=== PATIENT | male | born 1940 | race Two or more races ===

== ENCOUNTER 2018-06-24 22:36 | Inpatient (IN) | payer OTHER, MEDICARE ==
[~2018-06-24] VITALS: Ht 162.6 cm; Wt 59.3 kg
--- NOTE | 2018-06-24 23:00 | NUR ---
FIRST CONTACT WITH PT. PT STANDING STEADILY AT BEDSIDE. FAMILY PRESENT. FAMILY/PT REPORT BEING SEEN IN ED IN [place] TODAY FOR WORSENING L SIDED FACIAL SWELLING/DIFFICULTY SWALLOWING X FIVE DAYS. GIVEN UNASYN IN [place] THEN TRANSFERED BY FAMILY BY PRIVATE VEHICLE. FAMILY/PT DENIES FEVER/N/V. HX OF CA, NOT CURRENTLY UNDERGOING CHEMO. AIRWAY PATENT, SPEECH MILDLY MUFFLED. NAD NOTED. IV ESTABLISHED. LABS AND BC X1 DRAWN W/ PIV START. ERP AT BEDSIDE FOR INITIAL ASSESSMENT. POC IS ADMIT, PT/FAMILY DEMONSTRATE UNDERSTANDING.
[2018-06-24] MEDS ORDERED: MORPHINE SULFATE 4 MG/ML, 1ML IVPush PRN (23:30)
[2018-06-24] MEDS ORDERED: AMPICILLIN/SULBACTAM 3 GM in SODIUM CHLORIDE 0.9% 100 ML IV ONE (23:30)
[2018-06-24] MEDS ORDERED: MORPHINE SULFATE 4 MG/ML, 1ML ONE (23:30)
[2018-06-24] MEDS ORDERED: SODIUM CHLORIDE FLUSH 10ML SYR IVF ONE (23:30)
[2018-06-24 23:37] LABS: ALBUMIN 3.1 g/dL (3.4-5.0); ANION GAP 9 mmol/L (5-15); CALCIUM 7.8 mg/dL (8.5-10.1); CHLORIDE 108 mmol/L (98-107)
--- NOTE | 2018-06-24 23:48 | NUR ---
ABX INITIATED. PT MEDICATED PER EMAR FOR PAIN. NO BC PRIOR TO ABX ADMIN OKAY PER ERP. PT PROVIDED MOUTH SWABS AND UNDERSTANDS NOP STATUS. FAMILY AT BEDSIDE. SPO2 TO 88% ON RA. RR EVEN/UNLABORED. PLACED ON 2L BY NC FOR SUPPORT, SPO2 TO 93%. RR WNL.
[2018-06-25 00:02] LABS: MD YES; MEAN CORPUSCULAR HEMOGLOBIN 33.2 pg (27.5-34.5); MEAN CORPUSCULAR HGB CONC 33.7 g/dL (33.2-36.2); MEAN CORPUSCULAR VOLUME 98.6 fL (81-97); RED CELL DISTRIBUTION WIDTH 17.2 % (9.4-14.8)
[2018-06-25] MEDS ORDERED: NS + 20MEQ KCL 1,000 ML IV SCH (00:11)
[2018-06-25] MEDS ORDERED: BICA50TA5 PO (00:27)
[2018-06-25] MEDS ORDERED: TAMS0.4C2 PO (00:27)
[2018-06-25 00:30] LABS: MEAN PLATELET VOLUME 9.5 fL (7.4-10.4); PLATELET COUNT 65 x10^3/uL (130-400)
[2018-06-25] MEDS ORDERED: morphine SULFATE 10 MG/ML, 1ML IVPush PRN (00:30)
[2018-06-25] MEDS ORDERED: VANCOMYCIN PER PHARMACY MC PRN (00:30)
[2018-06-25] MEDS ORDERED: ACETAMINOPHEN 325 MG TABLET PO PRN (00:30)
[2018-06-25] MEDS ORDERED: DOCUSATE 100 MG CAPSULE PO PRN (00:30)
[2018-06-25] MEDS ORDERED: POLYETHYLENE GLYCOL 17 GM PACKET PO PRN (00:30)
[2018-06-25] MEDS ORDERED: HYDROcodone/APAP 5/325 TABLET PO PRN ×2 (00:30→08:30)
--- NOTE | 2018-06-25 00:35 | NUR ---
REPORT TO MANOLO FENG ON ONC. PT PREPARED FOR TRANSPORT.
[2018-06-25 00:40] LABS: BAND#(MANUAL) 0.16 x10^3/uL; BANDS%(MANUAL) 4 % (0-7); LYMPH#(MANUAL) 0.32 x10^3/uL (1-3.4); LYMPHS% (MANUAL) 8 % (22-44); MONOS#(MANUAL) 0.16 x10^3/uL (0.3-2.7); MONOS% (MANUAL) 4 % (2-9); MYELOCYTES# (MANUAL) 0.04 x10^3/uL (0-0); MYELOCYTES% (MANUAL) 1 % (0-0); SEG#(MANUAL) 3.24 x10^3/uL (1.8-6.8); SEGS% (MANUAL) 81 % (42-75)
[2018-06-25 00:41] LABS: NRBC % (MANUAL) 1 % (0-1); OTHER CELLS # (MANUAL) 0.08 x10^3/uL (0-0); OTHER CELLS % (MANUAL) 2 % (0-0)
[2018-06-25 00:42] LABS: POLYCHROMASIA 1+
[2018-06-25 00:43] LABS: OVALOCYTES 1+
[2018-06-25 00:46] LABS: LARGE PLATELETS 1+; SMALL PLATELETS 1+
[2018-06-25 00:47] LABS: <PLATELET ESTIMATE> DECREASED
[2018-06-25 00:49] LABS: SCHISTOCYTES 1+; TEAR DROPS 1+
[2018-06-25 01:12] VITALS: BP 91/48
[2018-06-25 01:17] VITALS: BP 99/57
[2018-06-25] MEDS ORDERED: PHARMACOKINETIC CONSULTATION MC ONE (01:30)
[2018-06-25] MEDS ORDERED: PHARMACOKINETIC MONITORING MC PRN (01:30)
[2018-06-25] MEDS ORDERED: VANCOMYCIN 1,300 MG in SODIUM CHLORIDE 0.9% 250 ML IV ONE (01:30)
[2018-06-25 02:39] VITALS: BP 98/57
[2018-06-25] MEDS: AMPICILLIN/SULBACTAM 3 GM in SODIUM CHLORIDE 0.9% 100 ML IV SCH ×4 (06:10→23:39)
[2018-06-25 07:31] VITALS: BP 100/59
[2018-06-25] MEDS: SENNA/DOCUSATE TABLET PO SCH (07:48)
[2018-06-25] MEDS: FAMOTIDINE 20 MG TABLET PO SCH ×2 (07:48→20:41)
--- NOTE | 2018-06-25 10:10 | NUR ---
REC PUREE/THIN; swallow precaution sheet in room Addendum: 06/25/18 at [address] Amended: Links added.
[2018-06-25] MEDS ORDERED: OMNIPAQUE 350 MG/ML, 100ML BOTTLE ONE (12:38)
[2018-06-25 13:48] VITALS: BP 114/67
[2018-06-25] MEDS ORDERED: VANCOMYCIN 1,200 MG in SODIUM CHLORIDE 0.9% 250 ML IV SCH (14:00)
[2018-06-25 19:14] VITALS: BP 104/58
[2018-06-25] MEDS: NS + 20MEQ KCL 1,000 ML IV SCH (23:39)
[2018-06-26 03:00] VITALS: BP 107/58
[2018-06-26 05:44] LABS: CHLORIDE 114 mmol/L (98-107)
[2018-06-26 05:51] LABS: ANION GAP 8 mmol/L (5-15); CALCIUM 7.3 mg/dL (8.5-10.1); CREATININE 0.69 mg/dL (0.7-1.3); IRON LEVEL 26 mcg/dL (65-175); TOTAL IRON BINDING CAPACITY 139 mcg/dL (250-450)
[2018-06-26 05:52] LABS: % IRON SATURATION 19 % (20-55)
[2018-06-26 06:17] LABS: MEAN CORPUSCULAR HEMOGLOBIN 33.6 pg (27.5-34.5); MEAN CORPUSCULAR HGB CONC 34.2 g/dL (33.2-36.2); MEAN CORPUSCULAR VOLUME 98.3 fL (81-97); MEAN PLATELET VOLUME 10.8 fL (7.4-10.4); PLATELET COUNT 57 x10^3/uL (130-400); RED BLOOD COUNT 2.26 x10^6/uL (4.38-5.82); RED CELL DISTRIBUTION WIDTH 17.2 % (9.4-14.8)
[2018-06-26] MEDS: AMPICILLIN/SULBACTAM 3 GM in SODIUM CHLORIDE 0.9% 100 ML IV SCH ×3 (06:17→20:34)
[2018-06-26 06:18] LABS: MD YES
[2018-06-26 06:22] LABS: BANDS%(MANUAL) 4 % (0-7); LYMPH#(MANUAL) 0.23 x10^3/uL (1-3.4); LYMPHS% (MANUAL) 9 % (22-44); MONOS% (MANUAL) 4 % (2-9); SEG#(MANUAL) 2.05 x10^3/uL (1.8-6.8); SEGS% (MANUAL) 79 % (42-75)
[2018-06-26 06:23] LABS: NRBC % (MANUAL) 1 % (0-1); OTHER CELLS % (MANUAL) 4 % (0-0)
[2018-06-26 06:24] LABS: OVALOCYTES 1+; TEAR DROPS 1+
[2018-06-26 06:25] LABS: <PLATELET ESTIMATE> DECREASED; POLYCHROMASIA 1+
[2018-06-26 06:26] LABS: LARGE PLATELETS 1+
[2018-06-26] MEDS: ACETAMINOPHEN 325 MG TABLET PO PRN ×2 (06:27→13:46)
[2018-06-26 07:22] VITALS: BP 108/62
[2018-06-26] MEDS ORDERED: POTASSIUM CHLORIDE 20 MEQ TAB.ER.PRT PO ONE (08:00)
[2018-06-26] MEDS: FAMOTIDINE 20 MG TABLET PO SCH ×2 (08:48→20:34)
[2018-06-26] MEDS: SENNA/DOCUSATE TABLET PO SCH (08:48)
[2018-06-26 13:27] VITALS: BP 116/53
[2018-06-26 14:24] LABS: HCT (SEDRATE) 25.2 % (39.2-51.8)
[2018-06-26 14:30] VITALS: BP 133/83
[2018-06-26] MEDS: DAPTOMYCIN IVPB SCH (15:24)
[2018-06-26] MEDS: SODIUM CHLORIDE 0.9% IVPB SCH (15:24)
[2018-06-26] MEDS: NS + 20MEQ KCL 1,000 ML IV SCH (16:51)
[2018-06-26 19:14] VITALS: BP 93/57
[2018-06-27] MEDS: AMPICILLIN/SULBACTAM 3 GM in SODIUM CHLORIDE 0.9% 100 ML IV SCH ×4 (02:12→20:14)
[2018-06-27 03:00] VITALS: BP 134/72
[2018-06-27 04:35] LABS: MEAN CORPUSCULAR HGB CONC 33.9 g/dL (33.2-36.2); MEAN CORPUSCULAR VOLUME 97.6 fL (81-97); MEAN PLATELET VOLUME 9.8 fL (7.4-10.4); PLATELET COUNT 60 x10^3/uL (130-400); RED BLOOD COUNT 2.44 x10^6/uL (4.38-5.82); RED CELL DISTRIBUTION WIDTH 17.8 % (9.4-14.8)
[2018-06-27 04:47] LABS: ANION GAP 8 mmol/L (5-15); CALCIUM 7.7 mg/dL (8.5-10.1); CHLORIDE 113 mmol/L (98-107)
[2018-06-27 04:49] LABS: MD YES
[2018-06-27 04:52] LABS: BAND#(MANUAL) 0.08 x10^3/uL; BANDS%(MANUAL) 2 % (0-7); LYMPH#(MANUAL) 0.94 x10^3/uL (1-3.4); LYMPHS% (MANUAL) 23 % (22-44); METAMYELOCYTES# (MANUAL) 0.04 x10^3/uL (0-0); METAMYELOCYTES% (MANUAL) 1 % (0-1); MONOS#(MANUAL) 0.12 x10^3/uL (0.3-2.7); MONOS% (MANUAL) 3 % (2-9); NRBC % (MANUAL) 1 % (0-1); OTHER CELLS # (MANUAL) 0.16 x10^3/uL (0-0); SEG#(MANUAL) 2.75 x10^3/uL (1.8-6.8); SEGS% (MANUAL) 67 % (42-75)
[2018-06-27 04:53] LABS: CREATINE KINASE, TOTAL 57 U/L (39-308); CREATININE 0.75 mg/dL (0.7-1.3)
[2018-06-27 04:54] LABS: ANISOCYTOSIS 1+; OTHER CELLS % (MANUAL) 4 % (0-0); OVALOCYTES 1+
[2018-06-27 04:55] LABS: <PLATELET ESTIMATE> DECREASED; LARGE PLATELETS 1+
[2018-06-27 07:40] VITALS: BP 121/65
[2018-06-27] MEDS: FERROUS SULFATE 325 MG TABLET PO SCH (08:24)
[2018-06-27] MEDS: GUAIFENESIN 200 MG TABLET PO SCH ×2 (08:24→20:14)
[2018-06-27] MEDS: FAMOTIDINE 20 MG TABLET PO SCH ×2 (08:24→20:14)
[2018-06-27] MEDS: SENNA/DOCUSATE TABLET PO SCH (08:24)
[2018-06-27] MEDS: NS + 20MEQ KCL 1,000 ML IV SCH (12:16)
[2018-06-27 13:53] VITALS: BP 147/69
[2018-06-27] MEDS: SODIUM CHLORIDE 0.9% 1,000 ML IV SCH (15:46)
[2018-06-27] MEDS: SODIUM CHLORIDE 0.9% IVPB SCH (15:47)
[2018-06-27] MEDS: DAPTOMYCIN IVPB SCH (15:47)
[2018-06-27 19:52] VITALS: BP 131/68
[2018-06-27] MEDS: ACETAMINOPHEN 325 MG TABLET PO PRN (20:14)
[2018-06-28 00:49] VITALS: BP 152/80
[2018-06-28] MEDS: AMPICILLIN/SULBACTAM 3 GM in SODIUM CHLORIDE 0.9% 100 ML IV SCH ×4 (02:05→19:28)
[2018-06-28 07:06] VITALS: BP_SYST 85; BP_SYST 94; BP_DIAS 45; BP_DIAS 54
[2018-06-28] MEDS: FAMOTIDINE 20 MG TABLET PO SCH ×2 (07:29→19:29)
[2018-06-28] MEDS: GUAIFENESIN 200 MG TABLET PO SCH ×2 (07:29→19:29)
[2018-06-28] MEDS: SENNA/DOCUSATE TABLET PO SCH (07:32)
[2018-06-28] MEDS: SODIUM CHLORIDE 0.9% 1,000 ML IV SCH (07:39)
[2018-06-28 07:41] LABS: CHLORIDE 112 mmol/L (98-107)
[2018-06-28 07:42] LABS: ALBUMIN 2.1 g/dL (3.4-5.0); ANION GAP 7 mmol/L (5-15); CALCIUM 7.5 mg/dL (8.5-10.1); CREATININE 0.82 mg/dL (0.7-1.3)
[2018-06-28 08:20] LABS: MEAN CORPUSCULAR HEMOGLOBIN 32.9 pg (27.5-34.5); MEAN CORPUSCULAR HGB CONC 33.7 g/dL (33.2-36.2); MEAN CORPUSCULAR VOLUME 97.6 fL (81-97); MEAN PLATELET VOLUME 10.9 fL (7.4-10.4); PLATELET COUNT 60 x10^3/uL (130-400); RED BLOOD COUNT 2.22 x10^6/uL (4.38-5.82); RED CELL DISTRIBUTION WIDTH 18.1 % (9.4-14.8)
[2018-06-28 08:24] LABS: HEMOGRAM NOTE RECHECKED; MD YES
[2018-06-28 08:40] LABS: BAND#(MANUAL) 0.12 x10^3/uL; BANDS%(MANUAL) 2 % (0-7); BLASTS # (MANUAL) 0.17 x10^3/uL (0-0); BLASTS % (MANUAL) 3 % (0-0); LYMPH#(MANUAL) 0.52 x10^3/uL (1-3.4); LYMPHS% (MANUAL) 9 % (22-44); MONOS#(MANUAL) 0.75 x10^3/uL (0.3-2.7); MONOS% (MANUAL) 13 % (2-9); NRBC % (MANUAL) 2 % (0-1); SEG#(MANUAL) 4.23 x10^3/uL (1.8-6.8); SEGS% (MANUAL) 73 % (42-75)
[2018-06-28 08:41] LABS: <PLATELET ESTIMATE> DECREASED; ANISOCYTOSIS 1+; LARGE PLATELETS 1+; OVALOCYTES 1+; POLYCHROMASIA 1+; TEAR DROPS 1+
[2018-06-28] MEDS ORDERED: POTASSIUM CHLORIDE 40 MEQ in SODIUM CHLORIDE 0.9% 500 ML IV ONE (10:30)
[2018-06-28 13:40] VITALS: BP 96/52
[2018-06-28] MEDS: SODIUM CHLORIDE 0.9% IVPB SCH (14:42)
[2018-06-28] MEDS: DAPTOMYCIN IVPB SCH (14:42)
[2018-06-28 19:13] VITALS: BP 124/69
[2018-06-28] MEDS: ACETAMINOPHEN 325 MG TABLET PO PRN (19:28)
[2018-06-29 00:57] VITALS: BP 138/64
[2018-06-29] MEDS: ACETAMINOPHEN 325 MG TABLET PO PRN ×4 (01:04→18:40)
[2018-06-29] MEDS: SODIUM CHLORIDE 0.9% 1,000 ML IV SCH (02:04)
[2018-06-29] MEDS: AMPICILLIN/SULBACTAM 3 GM in SODIUM CHLORIDE 0.9% 100 ML IV SCH ×4 (02:04→20:16)
[2018-06-29 06:01] LABS: MEAN CORPUSCULAR HEMOGLOBIN 33.5 pg (27.5-34.5); MEAN CORPUSCULAR HGB CONC 34.5 g/dL (33.2-36.2); MEAN CORPUSCULAR VOLUME 97.1 fL (81-97); MEAN PLATELET VOLUME 10.9 fL (7.4-10.4); PLATELET COUNT 61 x10^3/uL (130-400); RED BLOOD COUNT 2.41 x10^6/uL (4.38-5.82); RED CELL DISTRIBUTION WIDTH 17.6 % (9.4-14.8)
[2018-06-29 06:07] LABS: ALBUMIN 2.2 g/dL (3.4-5.0); ANION GAP 10 mmol/L (5-15); CALCIUM 7.5 mg/dL (8.5-10.1); CHLORIDE 113 mmol/L (98-107)
[2018-06-29] MEDS ORDERED: POTASSIUM CHLORIDE 20 MEQ in LACTATED RINGERS 1,000 ML IV SCH (06:30)
[2018-06-29] MEDS ORDERED: POTASSIUM CHLORIDE 10% 20 MEQ/15 ML UDC PO ONE (06:30)
[2018-06-29] MEDS ORDERED: POTASSIUM CHLORIDE 40 MEQ in SODIUM CHLORIDE 0.9% 500 ML IV ONE (06:30)
[2018-06-29 06:53] LABS: MD YES
[2018-06-29] MEDS ORDERED: GADOBUTROL 7.5 MMOL/7.5 ML PFS ONE (07:01)
[2018-06-29 07:11] VITALS: BP 138/71
[2018-06-29] MEDS: GUAIFENESIN 200 MG TABLET PO SCH ×2 (07:31→20:16)
[2018-06-29] MEDS: FAMOTIDINE 20 MG TABLET PO SCH ×2 (07:31→20:16)
[2018-06-29] MEDS: FERROUS SULFATE 325 MG TABLET PO SCH (07:31)
[2018-06-29] MEDS: SENNA/DOCUSATE TABLET PO SCH (07:32)
[2018-06-29 07:42] LABS: BAND#(MANUAL) 0.48 x10^3/uL; BANDS%(MANUAL) 8 % (0-7); EOS#(MANUAL) 0.12 x10^3/uL (0.0-0.4); EOS% (MANUAL) 2 % (1-7); LYMPH#(MANUAL) 0.72 x10^3/uL (1-3.4); LYMPHS% (MANUAL) 12 % (22-44); METAMYELOCYTES# (MANUAL) 0.12 x10^3/uL (0-0); METAMYELOCYTES% (MANUAL) 2 % (0-1); REACTIVE LYMPHS # (MANUAL) 0.12 x10^3/uL (0-0); REACTIVE LYMPHS % (MANUAL) 2 % (0-0); SEG#(MANUAL) 4.44 x10^3/uL (1.8-6.8); SEGS% (MANUAL) 74 % (42-75)
[2018-06-29 07:43] LABS: <PLATELET ESTIMATE> DECREASED; <PLT MORPHOLOGY> NORMAL PLT MORPH; ANISOCYTOSIS 1+; OVALOCYTES 1+; TEAR DROPS 2+
[2018-06-29 13:28] VITALS: BP 93/55
[2018-06-29 14:11] LABS: MICROSCOPIC NOT IND
[2018-06-29 14:17] LABS: CULTURE INDICATED? NO
[2018-06-29] MEDS: SODIUM CHLORIDE 0.9% IVPB SCH (14:53)
[2018-06-29] MEDS: DAPTOMYCIN IVPB SCH (14:53)
[2018-06-29] MEDS: MUPIROCIN OINT 2%, 22GM TP SCH ×2 (16:22→20:16)
[2018-06-29 19:27] VITALS: BP 113/64
[2018-06-29] MEDS: LATANOPROST OPHTH 0.005%, 2.5ML RIGHTEYE SCH (21:13)
[2018-06-29] MEDS: DORZOLAMIDE OPHTH 2%, 10ML EACHEYE SCH (21:14)
[2018-06-30] MEDS: AMPICILLIN/SULBACTAM 3 GM in SODIUM CHLORIDE 0.9% 100 ML IV SCH ×4 (02:09→23:31)
[2018-06-30 02:10] VITALS: BP 121/70
[2018-06-30 05:09] LABS: MEAN CORPUSCULAR HGB CONC 33.6 g/dL (33.2-36.2); MEAN CORPUSCULAR VOLUME 98.3 fL (81-97); RED BLOOD COUNT 2.16 x10^6/uL (4.38-5.82); RED CELL DISTRIBUTION WIDTH 17.7 % (9.4-14.8)
[2018-06-30 05:20] LABS: ALBUMIN 1.9 g/dL (3.4-5.0); ANION GAP 9 mmol/L (5-15); CALCIUM 6.9 mg/dL (8.5-10.1); CHLORIDE 112 mmol/L (98-107)
[2018-06-30 05:52] LABS: MD YES
[2018-06-30 05:55] LABS: MEAN PLATELET VOLUME 12.1 fL (7.4-10.4); PLATELET COUNT 55 x10^3/uL (130-400)
[2018-06-30 05:59] LABS: ANISOCYTOSIS 1+; BAND#(MANUAL) 0.16 x10^3/uL; BANDS%(MANUAL) 2 % (0-7); LYMPH#(MANUAL) 0.96 x10^3/uL (1-3.4); LYMPHS% (MANUAL) 12 % (22-44); METAMYELOCYTES# (MANUAL) 0.16 x10^3/uL (0-0); METAMYELOCYTES% (MANUAL) 2 % (0-1); MONOS#(MANUAL) 0.88 x10^3/uL (0.3-2.7); MONOS% (MANUAL) 11 % (2-9); MYELOCYTES# (MANUAL) 0.08 x10^3/uL (0-0); MYELOCYTES% (MANUAL) 1 % (0-0); NRBC % (MANUAL) 1 % (0-1); SEG#(MANUAL) 5.76 x10^3/uL (1.8-6.8); SEGS% (MANUAL) 72 % (42-75)
[2018-06-30 06:00] LABS: OVALOCYTES 1+; TEAR DROPS 1+
[2018-06-30 06:01] LABS: POLYCHROMASIA 1+
[2018-06-30 06:02] LABS: <PLATELET ESTIMATE> DECREASED; LARGE PLATELETS 1+
[2018-06-30] MEDS ORDERED: POTASSIUM CHLORIDE 20 MEQ in SODIUM CHLORIDE 0.9% 250 ML IV ONE (07:00)
[2018-06-30 08:00] VITALS: BP 110/64
[2018-06-30] MEDS: DORZOLAMIDE OPHTH 2%, 10ML EACHEYE SCH ×2 (08:25→20:58)
[2018-06-30] MEDS: GUAIFENESIN 200 MG TABLET PO SCH ×2 (08:25→20:58)
[2018-06-30] MEDS: MUPIROCIN OINT 2%, 22GM TP SCH ×3 (08:25→20:59)
[2018-06-30] MEDS: FAMOTIDINE 20 MG TABLET PO SCH ×2 (08:25→20:58)
[2018-06-30] MEDS: SENNA/DOCUSATE TABLET PO SCH (08:26)
[2018-06-30] MEDS: POTASSIUM CHLORIDE 20 MEQ in LACTATED RINGERS 1,000 ML IV SCH ×2 (08:27→23:31)
[2018-06-30 11:46] LABS: HCT (SEDRATE) 22.3 % (39.2-51.8)
[2018-06-30 13:41] VITALS: BP 117/42
[2018-06-30] MEDS: OXYcodone IR 5MG TABLET PO PRN ×2 (13:48→19:39)
[2018-06-30] MEDS: ACETAMINOPHEN 325 MG TABLET PO PRN ×2 (14:16→20:58)
[2018-06-30 15:31] LABS: MEAN CORPUSCULAR HEMOGLOBIN 33.5 pg (27.5-34.5); MEAN CORPUSCULAR HGB CONC 34.3 g/dL (33.2-36.2); MEAN CORPUSCULAR VOLUME 97.6 fL (81-97); MEAN PLATELET VOLUME 9.7 fL (7.4-10.4); PLATELET COUNT 55 x10^3/uL (130-400); RED BLOOD COUNT 2.29 x10^6/uL (4.38-5.82)
[2018-06-30 15:35] LABS: MD YES; RED CELL DISTRIBUTION WIDTH 17.4 % (9.4-14.8)
[2018-06-30 15:38] LABS: ANISOCYTOSIS 1+; BAND#(MANUAL) 1.08 x10^3/uL; BANDS%(MANUAL) 10 % (0-7); LYMPHS% (MANUAL) 12 % (22-44); METAMYELOCYTES# (MANUAL) 0.22 x10^3/uL (0-0); METAMYELOCYTES% (MANUAL) 2 % (0-1); MONOS#(MANUAL) 0.76 x10^3/uL (0.3-2.7); MONOS% (MANUAL) 7 % (2-9); MYELOCYTES# (MANUAL) 0.11 x10^3/uL (0-0); MYELOCYTES% (MANUAL) 1 % (0-0); NRBC % (MANUAL) 1 % (0-1); SEG#(MANUAL) 7.34 x10^3/uL (1.8-6.8); SEGS% (MANUAL) 68 % (42-75)
[2018-06-30 15:39] LABS: <PLATELET ESTIMATE> DECREASED; <PLT MORPHOLOGY> NORMAL PLT MORPH; OVALOCYTES 1+; POLYCHROMASIA 1+
[2018-06-30] MEDS: SODIUM CHLORIDE 0.9% IVPB SCH (16:52)
[2018-06-30] MEDS: DAPTOMYCIN IVPB SCH (16:52)
[2018-06-30 20:29] VITALS: BP 108/63
[2018-06-30] MEDS: LATANOPROST OPHTH 0.005%, 2.5ML RIGHTEYE SCH (20:58)
[2018-06-30] MEDS ORDERED: SODIUM CHLORIDE 0.9% 1,000 ML IVBOLUS PRN (21:09)
[2018-06-30 22:30] VITALS: BP 96/57
[2018-07-01 02:00] VITALS: BP 93/54
[2018-07-01 04:55] LABS: MEAN CORPUSCULAR HEMOGLOBIN 33.2 pg (27.5-34.5); MEAN CORPUSCULAR HGB CONC 33.9 g/dL (33.2-36.2); MEAN CORPUSCULAR VOLUME 97.8 fL (81-97); RED BLOOD COUNT 2.14 x10^6/uL (4.38-5.82); RED CELL DISTRIBUTION WIDTH 17.9 % (9.4-14.8)
[2018-07-01 04:56] LABS: ALBUMIN 1.8 g/dL (3.4-5.0); ANION GAP 7 mmol/L (5-15); CALCIUM 7.5 mg/dL (8.5-10.1); CHLORIDE 114 mmol/L (98-107); CREATININE 0.75 mg/dL (0.7-1.3)
[2018-07-01 05:51] LABS: MD YES
[2018-07-01 06:10] LABS: MEAN PLATELET VOLUME 10.4 fL (7.4-10.4); PLATELET COUNT 39 x10^3/uL (130-400)
[2018-07-01 06:17] LABS: LYMPH#(MANUAL) 0.78 x10^3/uL (1-3.4); LYMPHS% (MANUAL) 9 % (22-44); SEG#(MANUAL) 5.66 x10^3/uL (1.8-6.8); SEGS% (MANUAL) 65 % (42-75)
[2018-07-01] MEDS: AMPICILLIN/SULBACTAM 3 GM in SODIUM CHLORIDE 0.9% 100 ML IV SCH ×2 (06:17→10:21)
[2018-07-01 06:18] LABS: BLASTS # (MANUAL) 0.26 x10^3/uL (0-0); BLASTS % (MANUAL) 3 % (0-0); NRBC % (MANUAL) 1 % (0-1)
[2018-07-01 06:19] LABS: ANISOCYTOSIS 1+; BAND#(MANUAL) 0.96 x10^3/uL; BANDS%(MANUAL) 11 % (0-7); METAMYELOCYTES# (MANUAL) 0.09 x10^3/uL (0-0); METAMYELOCYTES% (MANUAL) 1 % (0-1); MONOS#(MANUAL) 0.96 x10^3/uL (0.3-2.7); MONOS% (MANUAL) 11 % (2-9); TEAR DROPS 1+
[2018-07-01 06:20] LABS: OVALOCYTES 1+; POLYCHROMASIA 1+
[2018-07-01 06:21] LABS: <PLATELET ESTIMATE> DECREASED; LARGE PLATELETS 1+
[2018-07-01 07:42] VITALS: BP 101/55
[2018-07-01] MEDS: MUPIROCIN OINT 2%, 22GM TP SCH ×3 (08:46→20:41)
[2018-07-01] MEDS: DORZOLAMIDE OPHTH 2%, 10ML EACHEYE SCH ×2 (08:46→20:52)
[2018-07-01] MEDS: SODIUM CHLORIDE 0.45% 1,000 ML IV SCH ×2 (08:47→20:41)
[2018-07-01] MEDS: SENNA/DOCUSATE TABLET PO SCH (09:00)
[2018-07-01] MEDS: FAMOTIDINE 20 MG TABLET PO SCH ×2 (09:00→20:42)
[2018-07-01] MEDS: GUAIFENESIN 200 MG TABLET PO SCH ×2 (09:00→20:41)
[2018-07-01] MEDS ORDERED: HYDROmorphone 2 MG/ML, 1ML ONE (10:13)
[2018-07-01] MEDS: HYDROmorphone 1 MG/ML, 1ML IV PRN (10:20)
--- NOTE | 2018-07-01 10:30 | NUR ---
Recommend: puree/thins, straws ok. [place] swallow precaution sign posted at bedside. Addendum: 07/01/18 at 1420 by Delicia MATHEW Amended: Links added.
[2018-07-01] MEDS: MEROPENEM 2 GM in SODIUM CHLORIDE 0.9% 100 ML IV SCH ×2 (12:17→20:41)
[2018-07-01 13:21] VITALS: BP 123/58
[2018-07-01] MEDS: SODIUM CHLORIDE 0.9% IVPB SCH (17:40)
[2018-07-01] MEDS: DAPTOMYCIN IVPB SCH (17:40)
[2018-07-01] MEDS: FERROUS SULFATE 325 MG TABLET PO SCH (20:42)
[2018-07-01] MEDS: LATANOPROST OPHTH 0.005%, 2.5ML RIGHTEYE SCH (20:42)
[2018-07-01 21:26] VITALS: BP 177/71
[2018-07-01] MEDS: ACETAMINOPHEN 325 MG TABLET PO PRN (21:39)
[2018-07-02 00:45] VITALS: BP 116/66
[2018-07-02] MEDS: MEROPENEM 2 GM in SODIUM CHLORIDE 0.9% 100 ML IV SCH ×3 (04:28→22:49)
[2018-07-02] MEDS: SODIUM CHLORIDE 0.45% 1,000 ML IV SCH ×3 (04:28→20:00)
[2018-07-02 06:11] LABS: ALBUMIN 1.6 g/dL (3.4-5.0); ANION GAP 7 mmol/L (5-15); CALCIUM 7.1 mg/dL (8.5-10.1); CHLORIDE 111 mmol/L (98-107); CREATININE 0.65 mg/dL (0.7-1.3)
[2018-07-02 06:24] LABS: MEAN CORPUSCULAR HEMOGLOBIN 33.4 pg (27.5-34.5); MEAN CORPUSCULAR VOLUME 98.3 fL (81-97); MEAN PLATELET VOLUME 10.1 fL (7.4-10.4); RED BLOOD COUNT 2.15 x10^6/uL (4.38-5.82); RED CELL DISTRIBUTION WIDTH 17.6 % (9.4-14.8)
[2018-07-02 07:03] LABS: PLATELET COUNT 41 x10^3/uL (130-400)
[2018-07-02 07:05] LABS: MD YES
[2018-07-02 07:09] LABS: BAND#(MANUAL) 0.24 x10^3/uL; BANDS%(MANUAL) 3 % (0-7); LYMPH#(MANUAL) 0.73 x10^3/uL (1-3.4); LYMPHS% (MANUAL) 9 % (22-44); METAMYELOCYTES# (MANUAL) 0.24 x10^3/uL (0-0); METAMYELOCYTES% (MANUAL) 3 % (0-1); MONOS#(MANUAL) 1.22 x10^3/uL (0.3-2.7); MONOS% (MANUAL) 15 % (2-9); MYELOCYTES# (MANUAL) 0.08 x10^3/uL (0-0); MYELOCYTES% (MANUAL) 1 % (0-0); SEG#(MANUAL) 5.35 x10^3/uL (1.8-6.8); SEGS% (MANUAL) 66 % (42-75)
[2018-07-02 07:13] LABS: ANISOCYTOSIS 1+; BLASTS # (MANUAL) 0.24 x10^3/uL (0-0); BLASTS % (MANUAL) 3 % (0-0); OVALOCYTES 1+
[2018-07-02 07:14] LABS: <PLATELET ESTIMATE> DECREASED; <PLT MORPHOLOGY> NORMAL PLT MORPH; HYPOCHROMIA 1+; TEAR DROPS 1+
[2018-07-02 07:35] VITALS: BP 100/55
[2018-07-02] MEDS: SENNA/DOCUSATE TABLET PO SCH (09:39)
[2018-07-02] MEDS: POTASSIUM CHLORIDE 20 MEQ PACKET PO SCH ×2 (09:39→21:36)
[2018-07-02] MEDS: FAMOTIDINE 20 MG TABLET PO SCH ×2 (09:40→21:37)
[2018-07-02] MEDS: MUPIROCIN OINT 2%, 22GM TP SCH ×3 (09:40→21:41)
[2018-07-02] MEDS: GUAIFENESIN 200 MG TABLET PO SCH ×2 (09:40→21:37)
[2018-07-02] MEDS: DORZOLAMIDE OPHTH 2%, 10ML EACHEYE SCH ×2 (09:40→21:37)
[2018-07-02 14:00] VITALS: BP 103/59
[2018-07-02] MEDS: DAPTOMYCIN IVPB SCH (17:06)
[2018-07-02] MEDS: SODIUM CHLORIDE 0.9% IVPB SCH (17:06)
[2018-07-02 20:00] VITALS: BP 96/62
[2018-07-02] MEDS: LATANOPROST OPHTH 0.005%, 2.5ML RIGHTEYE SCH (21:37)
[2018-07-03 02:11] VITALS: BP 92/50
[2018-07-03 03:25] VITALS: BP 108/59
[2018-07-03] MEDS: SODIUM CHLORIDE 0.45% 1,000 ML IV SCH ×3 (03:55→20:41)
[2018-07-03] MEDS: ACETAMINOPHEN 650 MG SUPP PR PRN (03:55)
[2018-07-03 06:01] LABS: MEAN CORPUSCULAR HEMOGLOBIN 33.4 pg (27.5-34.5); MEAN CORPUSCULAR HGB CONC 34.1 g/dL (33.2-36.2); MEAN CORPUSCULAR VOLUME 97.8 fL (81-97); MEAN PLATELET VOLUME 11.5 fL (7.4-10.4); RED BLOOD COUNT 2.11 x10^6/uL (4.38-5.82); RED CELL DISTRIBUTION WIDTH 17.3 % (9.4-14.8)
[2018-07-03 06:04] LABS: PLATELET COUNT 47 x10^3/uL (130-400)
[2018-07-03 06:05] LABS: INTERNATIONAL NORMALIZED RATIO 1.22 (0.93-1.1); PROTHROMBIN TIME 12.8 Seconds (9.6-11.5)
[2018-07-03 06:09] LABS: CHLORIDE 112 mmol/L (98-107)
[2018-07-03 06:14] LABS: ALANINE AMINOTRANSFERASE 30 U/L (12-78); ALBUMIN 1.7 g/dL (3.4-5.0); ALKALINE PHOSPHATASE 72 U/L (45-117); ANION GAP 7 mmol/L (5-15); BILIRUBIN,TOTAL 0.9 mg/dL (0.2-1.0); CALCIUM 7.4 mg/dL (8.5-10.1); CREATININE 0.58 mg/dL (0.7-1.3); TOTAL PROTEIN 4.5 g/dL (6.4-8.2)
[2018-07-03 06:27] LABS: MD YES
[2018-07-03] MEDS: MEROPENEM 2 GM in SODIUM CHLORIDE 0.9% 100 ML IV SCH ×3 (06:31→22:57)
[2018-07-03 06:34] LABS: LYMPH#(MANUAL) 0.78 x10^3/uL (1-3.4); LYMPHS% (MANUAL) 12 % (22-44); MONOS#(MANUAL) 0.52 x10^3/uL (0.3-2.7); MONOS% (MANUAL) 8 % (2-9); SEG#(MANUAL) 5.01 x10^3/uL (1.8-6.8); SEGS% (MANUAL) 77 % (42-75)
[2018-07-03 06:38] LABS: ANISOCYTOSIS 1+; BLASTS % (MANUAL) 3 % (0-0)
[2018-07-03 06:39] LABS: <PLATELET ESTIMATE> DECREASED; HYPOCHROMIA 1+; LARGE PLATELETS 1+; OVALOCYTES 1+; TEAR DROPS 1+
[2018-07-03 07:46] VITALS: BP 98/59
[2018-07-03 08:55] VITALS: BP 98/59
[2018-07-03] MEDS ORDERED: LIDOCAINE 1%-EPI 1:100K, 30ML ONE (09:02)
[2018-07-03] MEDS ORDERED: LIDOCAINE/PF 1%-EPI 1:200K, 30 ML ONE (09:05)
[2018-07-03] MEDS ORDERED: LIDOCAINE-MPF 1%, 5ML ONE (09:06)
[2018-07-03] MEDS ORDERED: EPINEPHRINE 1 MG/ML, 1ML ONE (09:06)
[2018-07-03] MEDS ORDERED: PROPOFOL 10 MG/ML, 20ML ONE (09:16)
[2018-07-03] MEDS ORDERED: FENTANYL PF 100 MCG/2ML ONE (09:28)
[2018-07-03] MEDS ORDERED: NEOSPORIN OINT. PKT 1 PACKET ONE (09:48)
[2018-07-03] MEDS ORDERED: DIAZEPAM 5 MG/ML, 2ML IVPush PRN (10:30)
[2018-07-03] MEDS ORDERED: hydrALAzine 20 MG/ML, 1ML IV PRN (10:30)
[2018-07-03] MEDS ORDERED: HYDROmorphone 2 MG/ML, 1ML IVPush PRN (10:30)
[2018-07-03] MEDS ORDERED: EPHEDRINE 50 MG/ML, 1ML IVPush PRN (10:30)
[2018-07-03] MEDS ORDERED: ONDANSETRON ODT 8 MG PO PRN (10:30)
[2018-07-03] MEDS ORDERED: LABETALOL 5MG/ML, 20ML IV PRN (10:30)
[2018-07-03] MEDS ORDERED: MIDAZOLAM 1 MG/ML, 2ML IV PRN (10:30)
[2018-07-03] MEDS ORDERED: MEPERIDINE/PF 25MG/0.5ML IVPush PRN (10:30)
[2018-07-03] MEDS ORDERED: ALBUTEROL SULFATE 2.5 MG/3 ML NPPB PRN (10:30)
[2018-07-03] MEDS ORDERED: PROMETHAZINE 12.5 MG SUPP PR PRN (10:30)
[2018-07-03] MEDS ORDERED: ONDANSETRON 2MG/ML, 2ML IV PRN (10:30)
[2018-07-03] MEDS ORDERED: MORPHINE SULFATE 4 MG/ML, 1ML IVPush PRN (10:30)
[2018-07-03] MEDS ORDERED: PROMETHAZINE 25 MG/ML, 1ML IV PRN (10:30)
[2018-07-03] MEDS ORDERED: FENTANYL PF 100 MCG/2ML IV PRN (10:30)
[2018-07-03] MEDS ORDERED: ACETAMINOPHEN 325 MG TABLET PO PRN (10:30)
[2018-07-03] MEDS ORDERED: HALOPERIDOL 5 MG/ML IV PRN (10:30)
[2018-07-03] MEDS ORDERED: OXYcodone 5 MG/5 ML ORAL.SOL UDC PO PRN (10:30)
[2018-07-03] MEDS: POTASSIUM CHLORIDE 20 MEQ PACKET PO SCH ×2 (11:34→20:42)
[2018-07-03] MEDS: FAMOTIDINE 20 MG TABLET PO SCH ×2 (11:34→20:42)
[2018-07-03] MEDS: GUAIFENESIN 200 MG TABLET PO SCH ×2 (11:34→20:42)
[2018-07-03] MEDS: MUPIROCIN OINT 2%, 22GM TP SCH ×3 (11:35→20:42)
[2018-07-03] MEDS: DORZOLAMIDE OPHTH 2%, 10ML EACHEYE SCH ×2 (11:35→20:41)
[2018-07-03] MEDS: SENNA/DOCUSATE TABLET PO SCH (11:35)
[2018-07-03 13:35] VITALS: BP 123/68
[2018-07-03] MEDS: DAPTOMYCIN IVPB SCH (17:14)
[2018-07-03] MEDS: SODIUM CHLORIDE 0.9% IVPB SCH (17:14)
[2018-07-03] MEDS: OXYcodone IR 5MG TABLET PO PRN (18:32)
[2018-07-03 20:00] VITALS: BP 114/64
[2018-07-03] MEDS: LATANOPROST OPHTH 0.005%, 2.5ML RIGHTEYE SCH (20:41)
[2018-07-03] MEDS: FERROUS SULFATE 325 MG TABLET PO SCH (20:42)
[2018-07-04 02:00] VITALS: BP 127/67
[2018-07-04] MEDS: OXYcodone IR 5MG TABLET PO PRN ×2 (04:03→15:41)
[2018-07-04] MEDS: SODIUM CHLORIDE 0.45% 1,000 ML IV SCH (04:03)
[2018-07-04 06:21] LABS: ANION GAP 6 mmol/L (5-15); CALCIUM 7.6 mg/dL (8.5-10.1); CHLORIDE 109 mmol/L (98-107)
[2018-07-04 06:22] LABS: CREATININE 0.65 mg/dL (0.7-1.3); MEAN CORPUSCULAR HEMOGLOBIN 33.3 pg (27.5-34.5); MEAN CORPUSCULAR HGB CONC 33.9 g/dL (33.2-36.2); MEAN CORPUSCULAR VOLUME 98.3 fL (81-97); MEAN PLATELET VOLUME 10.7 fL (7.4-10.4); PLATELET COUNT 91 x10^3/uL (130-400); RED BLOOD COUNT 2.27 x10^6/uL (4.38-5.82); RED CELL DISTRIBUTION WIDTH 18.3 % (9.4-14.8)
[2018-07-04] MEDS: MEROPENEM 2 GM in SODIUM CHLORIDE 0.9% 100 ML IV SCH ×3 (06:25→23:55)
[2018-07-04 06:45] LABS: MD YES
[2018-07-04 06:50] LABS: BAND#(MANUAL) 0.43 x10^3/uL; BANDS%(MANUAL) 6 % (0-7); EOS#(MANUAL) 0.07 x10^3/uL (0.0-0.4); EOS% (MANUAL) 1 % (1-7); LYMPH#(MANUAL) 0.72 x10^3/uL (1-3.4); LYMPHS% (MANUAL) 10 % (22-44); METAMYELOCYTES# (MANUAL) 0.43 x10^3/uL (0-0); METAMYELOCYTES% (MANUAL) 6 % (0-1); MONOS#(MANUAL) 0.36 x10^3/uL (0.3-2.7); MONOS% (MANUAL) 5 % (2-9); MYELOCYTES# (MANUAL) 0.22 x10^3/uL (0-0); MYELOCYTES% (MANUAL) 3 % (0-0)
[2018-07-04 06:54] LABS: BLASTS # (MANUAL) 0.22 x10^3/uL (0-0); BLASTS % (MANUAL) 3 % (0-0); SEG#(MANUAL) 4.75 x10^3/uL (1.8-6.8); SEGS% (MANUAL) 66 % (42-75)
[2018-07-04 06:55] LABS: ANISOCYTOSIS 2+; OVALOCYTES 1+; TEAR DROPS 1+
[2018-07-04 06:56] LABS: <PLATELET ESTIMATE> DECREASED; <PLT MORPHOLOGY> NORMAL PLT MORPH; LARGE PLATELETS 1+
[2018-07-04 06:58] VITALS: BP 139/63
[2018-07-04] MEDS: ACETAMINOPHEN 325 MG TABLET PO PRN ×2 (07:57→21:05)
[2018-07-04] MEDS: MUPIROCIN OINT 2%, 22GM TP SCH ×3 (09:00→21:11)
[2018-07-04] MEDS ORDERED: LIDOCAINE 1%, 10ML ONE (09:48)
[2018-07-04] MEDS: SENNA/DOCUSATE TABLET PO SCH (09:49)
[2018-07-04] MEDS: GUAIFENESIN 200 MG TABLET PO SCH ×2 (09:50→21:06)
[2018-07-04] MEDS: POTASSIUM CHLORIDE 20 MEQ PACKET PO SCH ×2 (09:50→21:07)
[2018-07-04] MEDS: DORZOLAMIDE OPHTH 2%, 10ML EACHEYE SCH ×2 (09:51→21:10)
[2018-07-04] MEDS: FAMOTIDINE 20 MG TABLET PO SCH ×2 (09:51→21:06)
[2018-07-04] MEDS: NEUTRA PHOS K 250 MG TABLET PO SCH ×3 (12:28→21:06)
[2018-07-04 13:35] VITALS: BP 94/56
[2018-07-04] MEDS: DAPTOMYCIN IVPB SCH (17:45)
[2018-07-04] MEDS: SODIUM CHLORIDE 0.9% IVPB SCH (17:45)
[2018-07-04 20:51] VITALS: BP 117/67
[2018-07-04] MEDS: LATANOPROST OPHTH 0.005%, 2.5ML RIGHTEYE SCH (21:10)
[2018-07-05] MEDS: OXYcodone IR 5MG TABLET PO PRN ×2 (00:11→08:48)
[2018-07-05] MEDS: ACETAMINOPHEN 325 MG TABLET PO PRN (01:09)
[2018-07-05] MEDS: ACETAMINOPHEN 650 MG SUPP PR PRN (01:18)
[2018-07-05 01:44] VITALS: BP 129/72
[2018-07-05 04:57] LABS: MEAN CORPUSCULAR HEMOGLOBIN 32.9 pg (27.5-34.5); MEAN CORPUSCULAR HGB CONC 33.3 g/dL (33.2-36.2); MEAN CORPUSCULAR VOLUME 98.8 fL (81-97); RED BLOOD COUNT 2.18 x10^6/uL (4.38-5.82); RED CELL DISTRIBUTION WIDTH 17.7 % (9.4-14.8)
[2018-07-05 05:07] LABS: ANION GAP 7 mmol/L (5-15); CALCIUM 7.9 mg/dL (8.5-10.1); CHLORIDE 110 mmol/L (98-107)
[2018-07-05 05:09] LABS: CREATININE 0.58 mg/dL (0.7-1.3)
[2018-07-05 05:19] LABS: MD YES; MEAN PLATELET VOLUME 10.2 fL (7.4-10.4); PLATELET COUNT 64 x10^3/uL (130-400)
[2018-07-05 05:22] LABS: BAND#(MANUAL) 0.46 x10^3/uL; BANDS%(MANUAL) 4 % (0-7); BLASTS # (MANUAL) 0.23 x10^3/uL (0-0); LYMPH#(MANUAL) 1.04 x10^3/uL (1-3.4); LYMPHS% (MANUAL) 9 % (22-44); MONOS#(MANUAL) 1.38 x10^3/uL (0.3-2.7); MONOS% (MANUAL) 12 % (2-9); SEGS% (MANUAL) 73 % (42-75)
[2018-07-05 05:23] LABS: BLASTS % (MANUAL) 2 % (0-0)
[2018-07-05 05:24] LABS: <PLATELET ESTIMATE> DECREASED; ANISOCYTOSIS 1+; LARGE PLATELETS 1+; OVALOCYTES 1+; TEAR DROPS 1+
[2018-07-05] MEDS ORDERED: SODIUM CHLORIDE 0.45% 1,000 ML IV SCH (07:30)
[2018-07-05 07:47] VITALS: BP 91/55
[2018-07-05] MEDS: DORZOLAMIDE OPHTH 2%, 10ML EACHEYE SCH ×2 (08:47→21:07)
[2018-07-05] MEDS: SENNA/DOCUSATE TABLET PO SCH (08:48)
[2018-07-05] MEDS: POTASSIUM CHLORIDE 20 MEQ PACKET PO SCH ×2 (08:48→21:08)
[2018-07-05] MEDS: NEUTRA PHOS K 250 MG TABLET PO SCH ×3 (08:48→21:08)
[2018-07-05] MEDS: GUAIFENESIN 200 MG TABLET PO SCH ×2 (08:48→21:08)
[2018-07-05] MEDS: FAMOTIDINE 20 MG TABLET PO SCH ×2 (08:48→21:08)
[2018-07-05] MEDS: MUPIROCIN OINT 2%, 22GM TP SCH ×3 (08:49→21:08)
[2018-07-05] MEDS: MEROPENEM 2 GM in SODIUM CHLORIDE 0.9% 100 ML IV SCH ×2 (09:25→16:40)
--- NOTE | 2018-07-05 11:02 | NUR ---
Recommend: pureed diet with thin liquids Addendum: 07/05/18 at 1103 by Carolina MATHEW Amended: Links added.
[2018-07-05 13:36] VITALS: BP 108/58
[2018-07-05] MEDS: SODIUM CHLORIDE 0.9% IVPB SCH (18:45)
[2018-07-05] MEDS: DAPTOMYCIN IVPB SCH (18:45)
[2018-07-05 20:00] VITALS: BP 102/58
[2018-07-05] MEDS: LATANOPROST OPHTH 0.005%, 2.5ML RIGHTEYE SCH (21:07)
[2018-07-05] MEDS: FERROUS SULFATE 325 MG TABLET PO SCH (21:08)
[2018-07-06] VITALS (9 sets, daily range): BP systolic 107–115; BP diastolic 52–66
[2018-07-06] MEDS: MEROPENEM 2 GM in SODIUM CHLORIDE 0.9% 100 ML IV SCH ×3 (01:06→16:32)
[2018-07-06] MEDS: ONDANSETRON 2MG/ML, 2ML IVPush PRN (03:27)
[2018-07-06 05:47] LABS: ANION GAP 6 mmol/L (5-15); CALCIUM 7.6 mg/dL (8.5-10.1); CHLORIDE 109 mmol/L (98-107); CREATININE 0.64 mg/dL (0.7-1.3)
[2018-07-06 06:02] LABS: MEAN CORPUSCULAR HEMOGLOBIN 33.4 pg (27.5-34.5); MEAN CORPUSCULAR HGB CONC 33.6 g/dL (33.2-36.2); MEAN CORPUSCULAR VOLUME 99.4 fL (81-97); MEAN PLATELET VOLUME 11.7 fL (7.4-10.4); PLATELET COUNT 82 x10^3/uL (130-400); RED BLOOD COUNT 2.08 x10^6/uL (4.38-5.82)
[2018-07-06 06:05] LABS: MD YES
[2018-07-06 06:06] LABS: BANDS%(MANUAL) 6 % (0-7); LYMPH#(MANUAL) 0.93 x10^3/uL (1-3.4); LYMPHS% (MANUAL) 8 % (22-44); MONOS% (MANUAL) 6 % (2-9)
[2018-07-06 06:07] LABS: ANISOCYTOSIS 1+; BLASTS # (MANUAL) 0.35 x10^3/uL (0-0); BLASTS % (MANUAL) 3 % (0-0); OVALOCYTES 1+; SEG#(MANUAL) 8.93 x10^3/uL (1.8-6.8); SEGS% (MANUAL) 77 % (42-75); TEAR DROPS 1+
[2018-07-06 06:08] LABS: POLYCHROMASIA 1+
[2018-07-06 06:09] LABS: <PLATELET ESTIMATE> DECREASED; LARGE PLATELETS 1+; PMNS WITH VACUOLES 1+
[2018-07-06] MEDS: SENNA/DOCUSATE TABLET PO SCH (07:11)
[2018-07-06] MEDS: POTASSIUM CHLORIDE 20 MEQ PACKET PO SCH ×2 (07:22→19:40)
[2018-07-06] MEDS: MUPIROCIN OINT 2%, 22GM TP SCH ×3 (08:31→19:41)
[2018-07-06] MEDS: FAMOTIDINE 20 MG TABLET PO SCH ×2 (08:32→19:40)
[2018-07-06] MEDS: GUAIFENESIN 200 MG TABLET PO SCH ×2 (08:32→19:41)
[2018-07-06] MEDS ORDERED: HYDROmorphone 2 MG/ML, 1ML ONE (08:34)
[2018-07-06] MEDS: HYDROmorphone 1 MG/ML, 1ML IV PRN (08:35)
[2018-07-06] MEDS: DORZOLAMIDE OPHTH 2%, 10ML EACHEYE SCH ×2 (08:35→19:41)
[2018-07-06] MEDS: OXYcodone IR 5MG TABLET PO PRN ×2 (16:14→21:11)
[2018-07-06] MEDS: DAPTOMYCIN IVPB SCH (18:19)
[2018-07-06] MEDS: SODIUM CHLORIDE 0.9% IVPB SCH (18:19)
[2018-07-06] MEDS: LATANOPROST OPHTH 0.005%, 2.5ML RIGHTEYE SCH (19:41)
[2018-07-06] MEDS ORDERED: VANCOMYCIN PER PHARMACY MC PRN (23:00)
[2018-07-07] MEDS: MEROPENEM 2 GM in SODIUM CHLORIDE 0.9% 100 ML IV SCH ×3 (00:16→18:10)
[2018-07-07 00:20] VITALS: BP 113/63
[2018-07-07] MEDS: ACETAMINOPHEN 325 MG TABLET PO PRN (00:28)
[2018-07-07] MEDS ORDERED: ACETAMINOPHEN 325 MG TABLET ONE (00:44)
[2018-07-07 00:50] LABS: MICROSCOPIC INDICATED
[2018-07-07 00:56] LABS: CULTURE INDICATED? NO
[2018-07-07] MEDS: ACETAMINOPHEN 650 MG SUPP PR PRN ×2 (01:00→18:10)
[2018-07-07 02:09] LABS: ALANINE AMINOTRANSFERASE 62 U/L (12-78); ALBUMIN 1.6 g/dL (3.4-5.0); ANION GAP 6 mmol/L (5-15); CALCIUM 7.6 mg/dL (8.5-10.1); CHLORIDE 110 mmol/L (98-107); CREATININE 0.84 mg/dL (0.7-1.3)
[2018-07-07 02:11] LABS: ALKALINE PHOSPHATASE 87 U/L (45-117); TOTAL PROTEIN 4.8 g/dL (6.4-8.2)
[2018-07-07 03:01] LABS: MEAN CORPUSCULAR HEMOGLOBIN 32.8 pg (27.5-34.5); MEAN CORPUSCULAR HGB CONC 33.9 g/dL (33.2-36.2); MEAN CORPUSCULAR VOLUME 96.8 fL (81-97); MEAN PLATELET VOLUME 10.6 fL (7.4-10.4); PLATELET COUNT 64 x10^3/uL (130-400); RED BLOOD COUNT 2.65 x10^6/uL (4.38-5.82)
[2018-07-07 04:55] LABS: MEAN CORPUSCULAR HGB CONC 33.9 g/dL (33.2-36.2); MEAN CORPUSCULAR VOLUME 97.2 fL (81-97); MEAN PLATELET VOLUME 11.1 fL (7.4-10.4); PLATELET COUNT 61 x10^3/uL (130-400); RED BLOOD COUNT 2.46 x10^6/uL (4.38-5.82); RED CELL DISTRIBUTION WIDTH 18.4 % (9.4-14.8)
[2018-07-07 05:00] LABS: ANION GAP 6 mmol/L (5-15); CALCIUM 7.3 mg/dL (8.5-10.1); CHLORIDE 112 mmol/L (98-107); CREATININE 0.71 mg/dL (0.7-1.3)
[2018-07-07 05:14] LABS: MD YES
[2018-07-07 05:15] LABS: ANISOCYTOSIS 1+; BAND#(MANUAL) 0.94 x10^3/uL; BANDS%(MANUAL) 8 % (0-7); METAMYELOCYTES# (MANUAL) 0.47 x10^3/uL (0-0); METAMYELOCYTES% (MANUAL) 4 % (0-1); MONOS#(MANUAL) 0.47 x10^3/uL (0.3-2.7); MONOS% (MANUAL) 4 % (2-9); MYELOCYTES# (MANUAL) 0.23 x10^3/uL (0-0); MYELOCYTES% (MANUAL) 2 % (0-0); OVALOCYTES 1+; SEG#(MANUAL) 9.59 x10^3/uL (1.8-6.8); SEGS% (MANUAL) 82 % (42-75)
[2018-07-07 05:16] LABS: <PLATELET ESTIMATE> DECREASED; <PLT MORPHOLOGY> NORMAL PLT MORPH; TEAR DROPS 1+
[2018-07-07 05:49] LABS: MD YES
[2018-07-07 05:52] LABS: BAND#(MANUAL) 0.63 x10^3/uL; BANDS%(MANUAL) 5 % (0-7); LYMPH#(MANUAL) 0.38 x10^3/uL (1-3.4); LYMPHS% (MANUAL) 3 % (22-44); METAMYELOCYTES# (MANUAL) 0.13 x10^3/uL (0-0); METAMYELOCYTES% (MANUAL) 1 % (0-1); MONOS#(MANUAL) 1.25 x10^3/uL (0.3-2.7); MONOS% (MANUAL) 10 % (2-9); MYELOCYTES# (MANUAL) 0.13 x10^3/uL (0-0); MYELOCYTES% (MANUAL) 1 % (0-0); SEG#(MANUAL) 9.75 x10^3/uL (1.8-6.8); SEGS% (MANUAL) 78 % (42-75)
[2018-07-07 05:53] LABS: BLASTS # (MANUAL) 0.25 x10^3/uL (0-0); BLASTS % (MANUAL) 2 % (0-0); NRBC % (MANUAL) 3 % (0-1)
[2018-07-07 05:54] LABS: PMNS WITH VACUOLES 1+
[2018-07-07 05:55] LABS: <PLATELET ESTIMATE> DECREASED; ANISOCYTOSIS 1+; LARGE PLATELETS 1+; OVALOCYTES 1+; TEAR DROPS 1+
[2018-07-07 07:24] VITALS: BP 91/51
[2018-07-07] MEDS: SENNA/DOCUSATE TABLET PO SCH (09:00)
[2018-07-07] MEDS: POTASSIUM CHLORIDE 20 MEQ PACKET PO SCH ×2 (10:20→20:28)
[2018-07-07] MEDS: GUAIFENESIN 200 MG TABLET PO SCH ×2 (10:20→20:23)
[2018-07-07] MEDS: POTASSIUM CHLORIDE 40 MEQ in DEXTROSE 5% 1,000 ML IV SCH (10:21)
[2018-07-07] MEDS: FAMOTIDINE 20 MG TABLET PO SCH ×2 (10:21→20:23)
[2018-07-07] MEDS: DORZOLAMIDE OPHTH 2%, 10ML EACHEYE SCH ×2 (10:22→20:25)
[2018-07-07] MEDS: MUPIROCIN OINT 2%, 22GM TP SCH ×3 (10:22→20:27)
[2018-07-07 14:15] VITALS: BP 114/65
[2018-07-07] MEDS: morphine SULFATE 10 MG/ML, 1ML IVPush PRN ×2 (14:19→18:04)
[2018-07-07] MEDS: ONDANSETRON 2MG/ML, 2ML IVPush PRN ×2 (14:19→18:04)
--- NOTE | 2018-07-07 14:21 | NUR ---
REC: Pureed diet with thin liquids Addendum: 07/07/18 at 1422 by Carolina MATHEW Amended: Links added.
[2018-07-07] MEDS ORDERED: ACETAMINOPHEN 650 MG/20.3 ML UDC ONE (18:06)
[2018-07-07] MEDS: SODIUM CHLORIDE 0.9% IVPB SCH (19:59)
[2018-07-07] MEDS: DAPTOMYCIN IVPB SCH (19:59)
[2018-07-07 20:10] VITALS: BP 96/53
[2018-07-07] MEDS: FERROUS SULFATE 325 MG TABLET PO SCH (20:23)
[2018-07-07] MEDS: LATANOPROST OPHTH 0.005%, 2.5ML RIGHTEYE SCH (20:26)
[2018-07-08] MEDS: POTASSIUM CHLORIDE 40 MEQ in DEXTROSE 5% 1,000 ML IV SCH (00:25)
[2018-07-08 01:22] VITALS: BP 117/73
[2018-07-08] MEDS: ACETAMINOPHEN 650 MG SUPP PR PRN (02:27)
[2018-07-08] MEDS ORDERED: FUROSEMIDE 20 MG/2 ML IV ONE (02:30)
[2018-07-08 02:55] VITALS: BP 97/58
[2018-07-08 03:02] LABS: ANION GAP 3 mmol/L (5-15); CALCIUM 7.5 mg/dL (8.5-10.1); CHLORIDE 111 mmol/L (98-107); CREATININE 0.83 mg/dL (0.7-1.3)
[2018-07-08] MEDS: MEROPENEM 2 GM in SODIUM CHLORIDE 0.9% 100 ML IV SCH ×3 (03:10→19:25)
[2018-07-08 03:16] LABS: MEAN CORPUSCULAR HEMOGLOBIN 32.2 pg (27.5-34.5); MEAN CORPUSCULAR HGB CONC 32.8 g/dL (33.2-36.2); MEAN CORPUSCULAR VOLUME 98.1 fL (81-97); MEAN PLATELET VOLUME 10.8 fL (7.4-10.4); PLATELET COUNT 55 x10^3/uL (130-400); RED BLOOD COUNT 2.74 x10^6/uL (4.38-5.82)
[2018-07-08 03:45] LABS: MD YES
[2018-07-08 04:04] LABS: ANISOCYTOSIS 1+; BAND#(MANUAL) 0.34 x10^3/uL; BANDS%(MANUAL) 3 % (0-7); LYMPH#(MANUAL) 0.22 x10^3/uL (1-3.4); LYMPHS% (MANUAL) 2 % (22-44); METAMYELOCYTES# (MANUAL) 0.22 x10^3/uL (0-0); METAMYELOCYTES% (MANUAL) 2 % (0-1); MONOS#(MANUAL) 1.46 x10^3/uL (0.3-2.7); MONOS% (MANUAL) 13 % (2-9); MYELOCYTES# (MANUAL) 0.22 x10^3/uL (0-0); MYELOCYTES% (MANUAL) 2 % (0-0); NRBC % (MANUAL) 2 % (0-1); SEG#(MANUAL) 8.74 x10^3/uL (1.8-6.8); SEGS% (MANUAL) 78 % (42-75)
[2018-07-08 04:05] LABS: PMNS WITH VACUOLES 1+; TEAR DROPS 1+
[2018-07-08 04:06] LABS: <PLATELET ESTIMATE> DECREASED
[2018-07-08 04:07] LABS: LARGE PLATELETS 1+
[2018-07-08 07:25] VITALS: BP 90/54
[2018-07-08] MEDS: POTASSIUM CHLORIDE 20 MEQ PACKET PO SCH ×2 (08:25→20:59)
[2018-07-08] MEDS: SENNA/DOCUSATE TABLET PO SCH (08:27)
[2018-07-08] MEDS ORDERED: POTASSIUM CHLORIDE 20 MEQ in DEXTROSE 5% 1,000 ML IV SCH (08:30)
[2018-07-08] MEDS: GUAIFENESIN 200 MG TABLET PO SCH ×2 (09:40→20:59)
[2018-07-08] MEDS: DORZOLAMIDE OPHTH 2%, 10ML EACHEYE SCH ×2 (09:40→21:00)
[2018-07-08] MEDS: FAMOTIDINE 20 MG TABLET PO SCH ×2 (09:41→20:59)
[2018-07-08] MEDS: ACETAMINOPHEN 325 MG TABLET PO PRN ×3 (09:41→22:54)
[2018-07-08] MEDS: MUPIROCIN OINT 2%, 22GM TP SCH ×4 (09:46→21:01)
[2018-07-08 14:03] VITALS: BP 99/61
[2018-07-08] MEDS: LINEZOLID PMX 600MG/300ML 300 ML IV SCH (14:34)
[2018-07-08] MEDS: OXYcodone IR 5MG TABLET PO PRN (14:34)
[2018-07-08] MEDS ORDERED: FUROSEMIDE 40 MG/4 ML IV ONE (17:00)
[2018-07-08 20:16] VITALS: BP 100/62
[2018-07-08] MEDS: LATANOPROST OPHTH 0.005%, 2.5ML RIGHTEYE SCH (21:01)
[2018-07-09 02:30] VITALS: BP 119/74
[2018-07-09] MEDS: LINEZOLID PMX 600MG/300ML 300 ML IV SCH ×2 (02:44→13:58)
[2018-07-09] MEDS: ACETAMINOPHEN 500 MG TABLET PO PRN (02:44)
[2018-07-09 05:04] LABS: MEAN CORPUSCULAR HEMOGLOBIN 32.8 pg (27.5-34.5); MEAN CORPUSCULAR HGB CONC 33.4 g/dL (33.2-36.2); MEAN CORPUSCULAR VOLUME 98.2 fL (81-97); MEAN PLATELET VOLUME 10.3 fL (7.4-10.4); PLATELET COUNT 42 x10^3/uL (130-400); RED CELL DISTRIBUTION WIDTH 17.7 % (9.4-14.8)
[2018-07-09 05:11] LABS: ANION GAP 6 mmol/L (5-15); CALCIUM 7.8 mg/dL (8.5-10.1); CHLORIDE 106 mmol/L (98-107); CREATININE 0.81 mg/dL (0.7-1.3)
[2018-07-09] MEDS: MEROPENEM 2 GM in SODIUM CHLORIDE 0.9% 100 ML IV SCH ×3 (05:14→19:41)
[2018-07-09] MEDS: MUPIROCIN OINT 2%, 22GM TP SCH ×3 (05:15→21:00)
[2018-07-09 05:40] LABS: MD YES
[2018-07-09 05:50] LABS: ANISOCYTOSIS 1+; BAND#(MANUAL) 0.75 x10^3/uL; BANDS%(MANUAL) 7 % (0-7); LYMPH#(MANUAL) 0.64 x10^3/uL (1-3.4); LYMPHS% (MANUAL) 6 % (22-44); METAMYELOCYTES# (MANUAL) 0.11 x10^3/uL (0-0); METAMYELOCYTES% (MANUAL) 1 % (0-1); MONOS#(MANUAL) 1.28 x10^3/uL (0.3-2.7); MONOS% (MANUAL) 12 % (2-9); NRBC % (MANUAL) 1 % (0-1); SEG#(MANUAL) 7.92 x10^3/uL (1.8-6.8); SEGS% (MANUAL) 74 % (42-75); TEAR DROPS 1+
[2018-07-09 05:51] LABS: <PLATELET ESTIMATE> DECREASED; HYPOCHROMIA 1+; LARGE PLATELETS 1+; POLYCHROMASIA 1+
[2018-07-09 08:09] VITALS: BP 103/62
[2018-07-09] MEDS: GUAIFENESIN 200 MG TABLET PO SCH ×2 (08:33→22:12)
[2018-07-09] MEDS: FAMOTIDINE 20 MG TABLET PO SCH ×2 (08:33→22:13)
[2018-07-09] MEDS: SENNA/DOCUSATE TABLET PO SCH (08:33)
[2018-07-09] MEDS: DORZOLAMIDE OPHTH 2%, 10ML EACHEYE SCH ×2 (08:40→22:14)
[2018-07-09] MEDS: POTASSIUM CHLORIDE 20 MEQ TAB.ER.PRT PO SCH ×2 (09:30→22:13)
[2018-07-09] MEDS: morphine SULFATE 10 MG/ML, 1ML IVPush PRN (13:58)
[2018-07-09] MEDS ORDERED: FUROSEMIDE 40 MG/4 ML IV ONE (14:30)
[2018-07-09] MEDS ORDERED: POTASSIUM CHLORIDE 20 MEQ TAB.ER.PRT PO ONE (14:30)
[2018-07-09 15:47] VITALS: BP 120/65
[2018-07-09 19:09] VITALS: BP 93/51
[2018-07-09] MEDS ORDERED: ACETAMINOPHEN 325 MG TABLET ONE ×2 (19:15→20:38)
[2018-07-09] MEDS: ACETAMINOPHEN 325 MG TABLET PO PRN ×2 (19:18→20:57)
[2018-07-09 19:22] VITALS: BP 106/59
[2018-07-09 22:10] VITALS: BP 99/61
[2018-07-09] MEDS: FERROUS SULFATE 325 MG TABLET PO SCH (22:12)
[2018-07-09] MEDS: LATANOPROST OPHTH 0.005%, 2.5ML RIGHTEYE SCH (22:15)
[2018-07-10 00:35] VITALS: BP 95/54
[2018-07-10] MEDS: LINEZOLID PMX 600MG/300ML 300 ML IV SCH (02:13)
[2018-07-10] MEDS: MEROPENEM 2 GM in SODIUM CHLORIDE 0.9% 100 ML IV SCH ×3 (04:35→12:14)
[2018-07-10 06:21] LABS: MEAN CORPUSCULAR HEMOGLOBIN 32.6 pg (27.5-34.5); MEAN CORPUSCULAR HGB CONC 33.1 g/dL (33.2-36.2); MEAN CORPUSCULAR VOLUME 98.4 fL (81-97); RED BLOOD COUNT 2.59 x10^6/uL (4.38-5.82); RED CELL DISTRIBUTION WIDTH 17.4 % (9.4-14.8)
[2018-07-10 06:24] LABS: ANION GAP 3 mmol/L (5-15); CALCIUM 7.9 mg/dL (8.5-10.1); CHLORIDE 107 mmol/L (98-107)
[2018-07-10 06:26] LABS: CREATININE 0.76 mg/dL (0.7-1.3)
[2018-07-10 07:23] VITALS: BP 89/52
[2018-07-10 07:32] LABS: MD YES
[2018-07-10 07:35] LABS: BAND#(MANUAL) 0.12 x10^3/uL; BANDS%(MANUAL) 1 % (0-7); LYMPH#(MANUAL) 0.81 x10^3/uL (1-3.4); LYMPHS% (MANUAL) 7 % (22-44); MONOS#(MANUAL) 0.92 x10^3/uL (0.3-2.7); MONOS% (MANUAL) 8 % (2-9); PMNS WITH VACUOLES 1+; REACTIVE LYMPHS # (MANUAL) 0.12 x10^3/uL (0-0); REACTIVE LYMPHS % (MANUAL) 1 % (0-0); SEG#(MANUAL) 9.55 x10^3/uL (1.8-6.8); SEGS% (MANUAL) 83 % (42-75)
[2018-07-10 07:36] LABS: ANISOCYTOSIS 1+; TEAR DROPS 1+
[2018-07-10 07:37] LABS: <PLATELET ESTIMATE> DECREASED; LARGE PLATELETS 1+
[2018-07-10 07:38] LABS: MEAN PLATELET VOLUME 11.1 fL (7.4-10.4)
[2018-07-10 07:41] LABS: PLATELET COUNT 44 x10^3/uL (130-400)
[2018-07-10] MEDS: ACETAMINOPHEN 500 MG TABLET PO PRN (07:50)
[2018-07-10] MEDS: POTASSIUM CHLORIDE 20 MEQ TAB.ER.PRT PO SCH (07:56)
[2018-07-10] MEDS: GUAIFENESIN 200 MG TABLET PO SCH (07:56)
[2018-07-10] MEDS: ACETAMINOPHEN 650 MG SUPP PR PRN (08:10)
[2018-07-10] MEDS: FAMOTIDINE 20 MG TABLET PO SCH (08:43)
[2018-07-10] MEDS: SENNA/DOCUSATE TABLET PO SCH (08:43)
[2018-07-10] MEDS: DORZOLAMIDE OPHTH 2%, 10ML EACHEYE SCH (08:43)
[2018-07-10] MEDS: MUPIROCIN OINT 2%, 22GM TP SCH (08:43)
[2018-07-10] MEDS ORDERED: ATROPINE OPHTH SOLN 1%, 5ML PO PRN (15:00)
[2018-07-10] MEDS ORDERED: LORazepam 2 MG/ML, 1ML IVPush PRN ×2 (15:00→16:30)
[2018-07-10] MEDS ORDERED: SCOPOLAMINE PATCH, 1.5MG PATCH.TD72 TD ONE (15:00)
[2018-07-10] MEDS ORDERED: SCOPOLAMINE PATCH, 1.5MG PATCH.TD72 TD SCH (16:30)
[2018-07-10] MEDS ORDERED: MORPHINE SULFATE 4 MG/ML, 1ML IVPush PRN ×2 (16:30)
[2018-07-10] MEDS ORDERED: ATROPINE OPHTH SOLN 1%, 2ML BC PRN (16:30)
== END 2018-07-11 03:30 | disposition expired | DRG 871 ==
LOC: ED 23:41 → SUATTDRO 23:58 → EDIP 06-25 00:18 → 3NW 06-25 00:59 → 4EST 06-30 22:39 → 3NW 07-06 11:08
PROVIDERS: ADMIT Family Medicine; ATTEND Internal Medicine
PROC: 0HB4XZX Excision of Neck Skin, External Approach, Diagnostic (ICD-10-PCS; 2018-07-03)
PROC: 0BJ08ZZ Inspection of Tracheobronchial Tree, Via Natural or Artificial Opening Endoscopic (ICD-10-PCS; 2018-07-03)
PROC: 0HB4XZX Excision of Neck Skin, External Approach, Diagnostic (ICD-10-PCS; principal; 2018-07-03 09:45)
PROC: 0W9B3ZZ Drainage of Left Pleural Cavity, Percutaneous Approach (ICD-10-PCS; 2018-07-04)
PROC: 30233R1 Transfusion of Nonautologous Platelets into Peripheral Vein, Percutaneous Approach (ICD-10-PCS; 2018-07-06)
PROC: 30233N1 Transfusion of Nonautologous Red Blood Cells into Peripheral Vein, Percutaneous Approach (ICD-10-PCS; 2018-07-06)
DX: A41.9 Sepsis, unspecified organism (principal); E43 Unspecified severe protein-calorie malnutrition; G93.41 Metabolic encephalopathy; J69.0 Pneumonitis due to inhalation of food and vomit; J96.01 Acute respiratory failure with hypoxia; L03.211 Cellulitis of face; D61.818 Other pancytopenia; C92.00 Acute myeloblastic leukemia, not having achieved remission; C79.51 Secondary malignant neoplasm of bone; E87.0 Hyperosmolality and hypernatremia; L03.221 Cellulitis of neck; J90 Pleural effusion, not elsewhere classified; C61 Malignant neoplasm of prostate; R13.10 Dysphagia, unspecified; E87.6 Hypokalemia; Z68.22 Body mass index [BMI] 22.0-22.9, adult; D53.9 Nutritional anemia, unspecified; D89.9 Disorder involving the immune mechanism, unspecified; E83.39 Other disorders of phosphorus metabolism; E83.51 Hypocalcemia; F32.9 Major depressive disorder, single episode, unspecified; I10 Essential (primary) hypertension; Z51.5 Encounter for palliative care; Z66 Do not resuscitate; Z83.3 Family history of diabetes mellitus; J34.2 Deviated nasal septum; I80.8 Phlebitis and thrombophlebitis of other sites; L29.9 Pruritus, unspecified
CPT/HCPCS: 32555; 36415; 36600; 70491; 70543; 71045; 71275; 80048; 80053; 81001; 81003; 82040; 82330; 82550; 82803; 82945; 82962; 83540; 83550; 83605; 83615; 83735; 83880; 84100; 84145; 84157; 84484; 85025; 85610; 85651; 85730; 86140; 86850; 86900; 86923; 87015; 87040; 87070; 87075; 87102; 87116; 87176; 87186; 87205; 87206; 87449; 88184; 88185; 88305; 88331; 88334; 93005; 93306; 96365; A9585; G0378; J0171; J0295; J0878; J1170; J1940; J2020; J2185; J2270; J2405; J2704; J3010; J3370; J3480; J3490; J7070; Q9967; J2060; J7030; J7040; J7050; J7120; P9037; P9040